=== PATIENT | male | born 1995 | race Caucasian/White ===

== ENCOUNTER 2018-10-11 18:28 | Emergency (ER) | payer SELFPAY ==
[~2018-10-11] VITALS: Ht 172.7 cm; Wt 65.8 kg
[2018-10-11 18:31] VITALS: Ht 172.7 cm; Wt 65.8 kg
[2018-10-11 20:19] VITALS: BP 141/77
== END 2018-10-11 20:42 | disposition home or self-care (01) ==
LOC: ED 18:28
DX: F16.10 Hallucinogen abuse, uncomplicated (principal); F41.9 Anxiety disorder, unspecified
CPT/HCPCS: J1200; J2060; J7030; Q0092